=== PATIENT | female | born 1965 | race Caucasian/White ===

== ENCOUNTER 2024-02-28 22:29 | Emergency (ER) | payer OTHER, SELFPAY ==
[2024-02-28 22:37] VITALS: BP 116/58; PULSE 53; RESP 18; TEMP 36.4; O2SAT 99; BMI 21.7
[2024-02-28 22:39] VITALS: PULSE 57; O2SAT 99
--- NOTE | 2024-02-28 22:58 | ED.ALLEREA ---
HPI - Allergic Reaction General Chief complaint: Allergic Reaction Stated complaint: stung by bee, allergic, swelling Time Seen by Provider: 02/28/24 22:33 Source: patient Mode of arrival: Ambulatory History of Present Illness HPI narrative: 58-year-old female presents for spreading allergic reaction to her left forearm. Patient states that earlier today she was stung on her left hand by a bee. She took 25 mg of Benadryl around 7:30 p.m., but she continued to have spreading swelling, so she decided to present to the ER for evaluation. She denies nausea, vomiting, shortness of breath, lip or tongue swelling. Related Data Previous Rx's Medication Instructions Recorded epinephrine 0.3 mg/0.3 mL 0.3 mg (0.3 mL) IM Q5-15M PRN 02/29/24 injection, auto-injector (EpiPen anaphylaxis #2 ea 2-Tiago) Allergies Allergy/AdvReac Type Severity Reaction Status Date / Time No Known Drug Allergies Allergy Verified 02/28/24 23:00 Patient History Social History Smoking Status: Never smoker Smoking Status: Never smoker Substance Use Type: does not use Exam Initial Vital Signs Initial Vital Signs: Vital Signs Temperature 97.5 F L 02/28/24 22:37 Pulse Rate 53 L 02/28/24 22:37 Respiratory Rate 18 02/28/24 22:37 Blood Pressure 116/58 L 02/28/24 22:37 Pulse Oximetry 99 02/28/24 22:37 Oxygen Delivery Method Room Air 02/28/24 22:37 Const: Awake, alert, no acute distress, nontoxic appearing MSK: Atraumatic, full range of motion, pulses equal Skin: Warm, Dry, intact, urticarial rash from left-hand to left mid forearm Neuro: AO x3, CN II-XII grossly intact, moves all extremities Course Orders Ordered: Famotidine (Famotidine 20 Mg/2 Ml Vial) 20 mg IV NOW RYAN Last Admin: 02/28/24 23:09 Dose: 20 mg Documented By: BRANDY Discontinued Medications Dexamethasone (Dexamethasone 10 Mg/Ml Vial) 10 mg IV NOW ONE Stop: 02/28/24 22:55 Last Admin: 02/28/24 23:09 Dose: 10 mg Documented By: BRANDY Diphenhydramine HCl (Diphenhydramine 50 Mg/Ml Vial) 50 mg IV NOW ONE Stop: 02/28/24 22:55 Last Admin: 02/28/24 23:09 Dose: 50 mg Documented By: BRANDY Vital Signs Vital signs: Vital Signs - 8 hr 02/28/24 22:37 02/28/24 22:39 02/28/24 23:00 Temperature 97.5 F L Pulse Rate 53 L 57 L 49 L Respiratory Rate 18 Blood Pressure 116/58 L Pulse Oximetry 99 99 99 Oxygen Delivery Method Room Air 02/28/24 23:30 Temperature Pulse Rate 54 L Respiratory Rate 18 Blood Pressure 117/59 L Pulse Oximetry 99 Oxygen Delivery Method Room Air MDM - Allergic Reaction MDM Narrative Medical decision making narrative: Skin allergic reaction after being stung by a bee. No signs or symptoms of anaphylaxis. Patient given IV medications for allergic reaction, with subsequent improvement in urticaria. Out of precaution an EpiPen prescription was sent to patient's pharmacy of choice. Patient counseled on medications for allergic reaction at home. Discharge Plan Departure Patient Disposition: Home Clinical Impression: Allergic reaction Instructions: DI for General Allergic Reactions Activity Restrictions/Additional Instructions: You may continue to take up to 50 mg of Benadryl as needed for allergic reactions. Out of precaution an EpiPen prescription has been sent to the [facility] in [place]. Prescriptions: New epinephrine [EpiPen 2-Tiago] 0.3 mg/0.3 mL auto-injector 0.3 mg IM Q5-15M PRN (Reason: anaphylaxis) Qty: 2 0RF Rx Instructions: do not exceed 3 doses per episode Stand Alone Forms: Patient Portal/API
[2024-02-28 23:00] VITALS: PULSE 49; O2SAT 99
[2024-02-28] MEDS: DEXAMETHASONE 10 MG/ML VIAL IV (23:09)
[2024-02-28] MEDS: diphenhydrAMINE 50 MG/ML VIAL IV (23:09)
[2024-02-28] MEDS: FAMOTIDINE 20 MG/2 ML VIAL IV (23:09)
[2024-02-28 23:30] VITALS: BP 117/59; PULSE 54; RESP 18; O2SAT 99
== END 2024-02-29 00:14 | disposition home or self-care (01) ==
PROVIDERS: Emergency Provider Emergency Medicine
DX: T63.441A Toxic effect of venom of bees, accidental (unintentional), initial encounter (principal)
CPT/HCPCS: 96374; 96375; 99283; J1100; J1200